=== PATIENT | male | born 2005 | race Hispanic/Latino ===

== ENCOUNTER 2024-08-18 04:19 | Emergency (ER) | payer OTHER, SELFPAY ==
[2024-08-18 04:21] VITALS: BP 171/86
[2024-08-18 05:24] VITALS: BP 135/67
[2024-08-18 05:25] VITALS: BMI 27.7
[2024-08-18 05:47] LABS: % Basophils 0.5 % (0-2); % Eosinophils 0.8 % (0-6); % Immature Granulocytes 0.2 % (0-0.5); % Lymphocytes 23.5 % (20.5-51.1); % Monocytes 5.9 % (1.7-9.3); % Neutrophils 69.1 % (42.2-75.2); Absolute Basophils 0.1 10^3/uL (0-0.2); Absolute Eosinophils 0.1 10^3/uL (0-0.7); Absolute Lymphocytes 2.3 10^3/uL (1.2-3.4); Absolute Monocytes 0.6 10^3/uL (0.1-0.6); Absolute Neutrophils 6.7 10^3/uL (1.4-6.5); Hematocrit 47.4 % (39.0-52.0); Hemoglobin 16.2 g/dL (13.0-18.0); Mean Corp Hgb Conc. 34.2 g/dL (33.0-37.0); Mean Corpuscular Hgb 28.1 pg (27.0-31.0); Mean Corpuscular Volume 82.1 fL (80.0-94.0); Mean Platelet Volume 8.2 fL (7.4-10.4); Nucleated Red Blood Cells % 0 % (-); Platelet Count 401 10^3/uL (130-400); Red Blood Cell Count 5.77 10^6/uL (4.70-6.10); Red Cell Dist. Width 12.1 % (11.5-14.5); White Blood Cell Count 9.6 10^3/uL (4.8-10.8)
[2024-08-18 06:00] VITALS: BP 126/78
[2024-08-18 06:04] LABS: ALT (SGPT) 23 U/L (0-50); AST (SGOT) 25 U/L (17-59); Albumin 5.4 g/dl (3.5-5.0); Alkaline Phosphatase 95 U/L (38-126); Blood Urea Nitrogen 20 mg/dl (9-20); Calcium 9.9 mg/dl (8.4-10.2); Carbon Dioxide 26 mmol/L (22-30); Chloride 103 mmol/L (98-107); Estimated Creatinine Clearance 104 ml/min; Glucose 99 mg/dl (70-99); Lipase 86 U/L (23-300); Potassium 4.1 mmol/L (3.5-5.1); Sodium 143 mmol/L (135-145); Total Protein 8.4 g/dl (6.3-8.2); eGFR > 60.00
--- NOTE | 2024-08-18 06:07 | ED.GENMED ---
History of Present Illness
<Bree Cruz MD, Resident - Last Filed: 08/18/24 12:45>
General
Chief Complaint: Abdominal Symptoms
Source: patient and family
Time Seen by Provider: 08/18/24 06:00
History of Present Illness
History of Present Illness:
This is a 19 year old male patient with no significant PMH who is accompanied by his mother who presents to the ER with concerns of nausea. The mother states that patient had a fast food meal on Wednesday which is when his symptoms had started. He
started to feel severe nausea and had one short episode of abdominal pain that day. Since that day, he has only experienced nausea after every meal that lasts an hour and denies any fever, vomiting, chills, diarrhea or constipation. He has not had
any recent history of travel and is not on any daily medications. He has tried PeptoBismol with no relief.
Past History
<Bree Cruz MD, Resident - Last Filed: 08/18/24 12:45>
Past History
ED Past Medical History: None
ED Past Surgical History: None
Social History
Personal: Single
Living: with family
Employment: Student
Review of Systems
<Bree Cruz MD, Resident - Last Filed: 08/18/24 12:45>
Review of Systems
Constitutional: Denies fever or chills
Respiratory: Denies cough
ABD/GI: Reports nausea; Denies abdominal pain, vomiting, diarrhea or constipated
Neurological: Denies dizzy or headache
Phy Exam
<Bree Cruz MD, Resident - Last Filed: 08/18/24 12:45>
General Physical Exam
General Presentation: well appearing and no apparent distress
Cardiovascular Exam
Cardiovascular Exam: regular rate/rhythm and no murmur
Heart Sounds: normal
Pulmonary Exam
Pulmonary Exam: lungs clear, no respiratory distress and no crackles
Gastrointestinal Exam
Gastrointestinal Exam: non tender, soft and non distended
Neurological Exam
Neurological Exam: oriented x3
Musculoskeletal Exam
Musculoskeletal Exam: no edema
Skin Exam
Skin Exam: warm/dry
Psychiatric Exam
Psychiatric Exam: normal mood/affect
Course
<Bree Angelica Cruz MD, Resident - Last Filed: 08/18/24 12:45>
Orders/Labs/Results
Orders:
Orders
08/18/24 05:39
Complete Blood Count/With Diff Urgent
Comprehensive Metabolic Panel Urgent
Lipase Urgent
08/18/24 06:56
0.9% Sodium Chloride 500 ml [Nss] 500 ml IV BOLUS
08/18/24 06:57
Ondansetron HCl [Zofran] 4 mg PO NOW STA
Pantoprazole [Protonix] 20 mg PO NOW STA
08/18/24 07:00
Ondansetron Injectable [Zofran] 4 mg IV NOW STA
Pantoprazole [Protonix IV] 40 mg IV NOW STA
08/18/24 07:01
Ondansetron Injectable [Zofran] 4 mg .ROUTE .STK-MED ONE
08/18/24 07:02
Pantoprazole [Protonix IV] 40 mg .ROUTE .STK-MED ONE
Abnormal Lab Results
08/18/24
05:39
Plt Count 401 H 10^3/uL
(130-400)
Absolute Neuts (auto) 6.7 H 10^3/uL
(1.4-6.5)
Total Protein 8.4 H g/dl
(6.3-8.2)
Albumin 5.4 H g/dl
(3.5-5.0)
08/18/24 05:39
08/18/24 05:39
Vital Signs
Initial and Last Documented VS:
Initial Vital Signs
Pulse Resp BP Pulse Ox
76 18 171/86 100
08/18/24 04:21 08/18/24 04:21 08/18/24 04:21 08/18/24 04:21
Last Documented Vital Signs
Pulse Resp BP Pulse Ox
91 16 137/70 99
08/18/24 06:46 08/18/24 05:30 08/18/24 08:00 08/18/24 08:00
<Yared Singleton MD - Last Filed: 08/18/24 09:28>
Orders/Labs/Results
Orders:
Orders
08/18/24 05:39
Complete Blood Count/With Diff Urgent
Comprehensive Metabolic Panel Urgent
Lipase Urgent
08/18/24 06:56
0.9% Sodium Chloride 500 ml [Nss] 500 ml IV BOLUS
08/18/24 06:57
Ondansetron HCl [Zofran] 4 mg PO NOW STA
Pantoprazole [Protonix] 20 mg PO NOW STA
08/18/24 07:00
Ondansetron Injectable [Zofran] 4 mg IV NOW STA
Pantoprazole [Protonix IV] 40 mg IV NOW STA
08/18/24 07:01
Ondansetron Injectable [Zofran] 4 mg .ROUTE .STK-MED ONE
08/18/24 07:02
Pantoprazole [Protonix IV] 40 mg .ROUTE .STK-MED ONE
Abnormal Lab Results
08/18/24
05:39
Plt Count 401 H 10^3/uL
(130-400)
Absolute Neuts (auto) 6.7 H 10^3/uL
(1.4-6.5)
Total Protein 8.4 H g/dl
(6.3-8.2)
Albumin 5.4 H g/dl
(3.5-5.0)
08/18/24 05:39
08/18/24 05:39
Vital Signs
Initial and Last Documented VS:
Initial Vital Signs
Pulse Resp BP Pulse Ox
76 18 171/86 100
08/18/24 04:21 08/18/24 04:21 08/18/24 04:21 08/18/24 04:21
Last Documented Vital Signs
Pulse Resp BP Pulse Ox
91 16 137/70 99
08/18/24 06:46 08/18/24 05:30 08/18/24 08:00 08/18/24 08:00
<Bree Cruz MD, Resident - Last Filed: 08/18/24 12:45>
MDM/Problems Addressed
Differential Diagnosis Includes:
Viral gastroenteritis, PUD, cholelithiasis, IBS, acute pancreatitis
MDM/Problems Addressed:
He is afebrile with stable vitals and unremarkable physical exam. Abd soft, nondistended and nontender. Blood work without any acute abnormality. Will give IVFs, PPI and zofran for symptomatic relief and trial with food. Patient had relief. Likely
viral gastroenteritis versus gastritis. Stable for discharge with instructions for follow up with GI and PCP for further care along with symptomatic care of pepsid and carafate.
<Bree Cruz MD, Resident - Last Filed: 08/18/24 12:45>
*Critical Care Note
Total Time (30-74mins, 75-104mins- exclusive of procedures): Not Applicable
ED Attending Note
<Bree Cruz MD, Resident - Last Filed: 08/18/24 12:45>
-
Portions of this chart may have been created with voice recognition software.� Occasional wrong word or��sound alike� substitutions may have occurred due to the inherent limitations of voice recognition software.
<Yared Singleton MD - Last Filed: 08/18/24 09:28>
ED Attending Note
Patient seen and examined by attending physician: Yes
ED Attending Note:
Patient without any significant past medical history, presents to ED secondary to persistent intermittent nausea sensation over the past 1 week. Patient states that his symptoms started after eating at [employer]. Since then, with every meal,
patient has been experiencing nausea sensation, typically, an approximately 1 to 2 hours after eating. Denies diarrhea. Patient has had intermittent abdominal cramping sensation, but not persistent. Denies fever or chills. Denies sick contact.
Denies recent travel. Patient does not take any medications daily. Denies previous history of similar symptoms. However, patient's sister is currently being treated for gastritis.
Physical Exam
General: no apparent distress, not acutely ill. afebrile.
Head: nc/at. eomi
Neck: supple. no meningeal signs. normal posterior pharynx
Heart: s1/s2 regular rate and rhythm, no murmur. equal radial pulses.
Lungs: no acute respiratory distress. clear bilaterally
Abdomen: normal bowel sounds. not tender. no distention
Neuro: alert and oriented. no focal neurological deficits
Skin: no rash
Psychiatric: well kept. interactive and cooperative
Extremities: no edema. no calf tenderness
Patient with an unremarkable workup in ED, and remains afebrile, hemodynamically stable, and without any vomiting episodes. Repeat abdominal exam: Soft and nontender. History and exam consistent with likely nonspecific viral illness versus
gastritis versus reflux versus peptic ulcer disease. Doubt an acute surgical abdominal etiology. As such, patient will be treated symptomatically, with PPI/Carafate, along with recommendation to follow-up with GI physician for an outpatient
consultation. Advised to return to ED with worsening symptoms, i.e. fever/worsening pain/vomiting.
Discharge Plan
Departure
Patient Disposition: Home (Routine Discharge)
Date of Disposition: 08/18/24
Time of Disposition: 08:09
Patient with high blood pressure during this ER visit?: Yes
Discharge Problem:
Viral gastroenteritis
Prescriptions:
New
sucralfate [Carafate] 1 gram tablet
1 g PO BID Qty: 30 0RF
Rx Instructions:
Use 1 hr before meals.
famotidine 20 mg tablet
20 mg PO BID Qty: 30 0RF
Referrals:
Xena Solis DO [Family Provider] -
Renae Patterson DO [Active] -
Activity Restrictions/Additional Instructions:
If experiencing any symptoms such as worsening nausea, severe abdominal pain, high grade fevers or vomiting please return to the ER. Use pepsid twice a day and carafate an hour before meals. Please follow up with GI doctor and PCP for further care.
Interventions
Interventions:
*Risk Screen - Suicide Last Done: 08/18/24 04:24
*General Assessment Last Done: 08/18/24 05:26
*Neglect/Abuse Screening Last Done: 08/18/24 04:24
ED- Fall Risk Assessment Last Done: 08/18/24 05:26
*ED COVID-19 Vaccine History Last Done: 08/18/24 04:21
*Nursing Disposition Last Done: 08/18/24 08:30
VT-Yhljwt-Fxcsmhbghp Assessment Last Done: 08/18/24 05:26
Discharge Date and Time
Discharge Date/Time: 08/18/24 08:30
Print Language: THAI
[2024-08-18 07:01] VITALS: BP 119/65
[2024-08-18] MEDS: ZOFRAN 4 MG IV (07:05)
[2024-08-18] MEDS: NSS 500 IV (07:05)
[2024-08-18] MEDS: PROTONIX IV 40 MG IV (07:05)
[2024-08-18 08:00] VITALS: BP 137/70
== END 2024-08-18 08:30 | disposition home or self-care (01) ==
LOC: EMR 04:19
PROVIDERS: Student in an Organized Health Care Education/Training Program; EMERGENCY PHYSICIAN Emergency Medicine; FAMILY PHYSICIAN Internal Medicine
DX: A08.4 Viral intestinal infection, unspecified (principal); R03.0 Elevated blood-pressure reading, without diagnosis of hypertension
CPT/HCPCS: 99284; 96374; 96375; 80053; 83690; 85025

== ENCOUNTER 2024-11-05 19:11 | Emergency (ER) | payer OTHER, SELFPAY ==
[2024-11-05 19:13] VITALS: BP 143/86
--- NOTE | 2024-11-05 20:02 | ED.GENMED ---
History of Present Illness
General
Chief Complaint: Abdominal Symptoms
Source: patient and family
Exam Limitations: none
Time Seen by Provider: 11/05/24 19:49
History of Present Illness
History of Present Illness:
Patient is a 19-year-old male brought to the ER by mom for evaluation. Patient has had intermittent nausea and diarrhea for the past several days after eating ham. He also describes feeling a really weird sensation in his throat However
denies sensation of a sore throat. He denies any difficulty breathing or swallowing his own secretions .
he has intermittent chills. He denies any cough, recent URI symptoms. He denies any actual abdominal pain. He denies any shortness of breath. He denies any fevers.
Past History
Past History
ED Past Medical History: None
ED Past Surgical History: None
Social History
Personal: Single
Living: with family
Employment: Student
Review of Systems
Review of Systems
Allergies reviewed?: Yes
All Other Systems: ROS reviewed and negative except as documented in HPI and ROS
Constitutional: Reports chills
Respiratory: Reports no symptoms
Cardiac: Reports no symptoms
ABD/GI: Reports nausea and diarrhea
: Reports no symptoms
Musculoskeletal: Reports no symptoms
Skin: Reports no symptoms
Neurological: Reports no symptoms
Psychiatric: Reports no symptoms
Phy Exam
General Physical Exam
General Presentation: no apparent distress
General age: appears stated age
General Skin: warm
General Habitus: normal
General Mental: alert
General Hydration: appears well hydrated
ENT Exam
ENT Exam: EOMI, pharynx normal, neck supple and other (No exudative tonsils uvula midline pharynx is normal)
Cardiovascular Exam
Cardiovascular Exam: regular rate/rhythm, no murmur and normal peripheral pulses
Pulmonary Exam
Pulmonary Exam: lungs clear and no respiratory distress
Gastrointestinal Exam
Gastrointestinal Exam: non tender and soft
Neurological Exam
Neurological Exam: alert and oriented x3
Musculoskeletal Exam
Musculoskeletal Exam: full ROM
Skin Exam
Skin Exam: normal color and warm/dry
Psychiatric Exam
Psychiatric Exam: normal mood/affect
Course
Orders/Labs/Results
Orders:
Orders
11/05/24 20:19
IV Insert/Care/Rem.- Treatment PRN
0.9% Sodium Chloride 1000 ml [Nss] 1,000 ml IV BOLUS
11/05/24 20:33
COVID-19 Antigen Urgent
Source: Nasal Swab
Complete Blood Count/With Diff Urgent
Comprehensive Metabolic Panel Urgent
Influenza A+B Rapid Molecular Urgent
MELINDA Source: Nasal Swab
Specimen Description:
11/05/24 21:07
Ketorolac [Toradol] 15 mg IV NOW STA
Abnormal Lab Results
11/05/24
20:33
Plt Count 435 H 10^3/uL
(130-400)
Potassium 3.3 L mmol/L
(3.5-5.1)
Glucose 103 H mg/dl
(70-99)
Calcium 10.5 H mg/dl
(8.4-10.2)
Total Protein 8.3 H g/dl
(6.3-8.2)
Albumin 5.5 H g/dl
(3.5-5.0)
11/05/24 20:33
11/05/24 20:33
Vital Signs
Initial and Last Documented VS:
Initial Vital Signs
Temp Pulse Resp BP Pulse Ox
98.4 F 86 18 143/86 99
11/05/24 19:13 11/05/24 19:13 11/05/24 19:13 11/05/24 19:13 11/05/24 19:13
Last Documented Vital Signs
Temp Pulse Resp BP Pulse Ox
98.4 F 80 16 127/60 99
11/05/24 19:13 11/05/24 23:05 11/05/24 23:05 11/05/24 23:05 11/05/24 23:05
MDM/Problems Addressed
MDM/Problems Addressed:
Symptoms are consistent with possible viral syndrome versus food related illness however patient is very nontoxic /;labs unremarkable. Patient was given fluids here in the ER and feels well after go home.
*Critical Care Note
Total Time (30-74mins, 75-104mins- exclusive of procedures): Not Applicable
ED Attending Note
-
Portions of this chart may have been created with voice recognition software.� Occasional wrong word or��sound alike� substitutions may have occurred due to the inherent limitations of voice recognition software.
Discharge Plan
Departure
Patient Disposition: Home (Routine Discharge)
Date of Disposition: 11/05/24
Time of Disposition: 22:29
Patient with high blood pressure during this ER visit?: Yes
Condition: Fair
Covid-19: Not Applicable
Discharge Problem:
Nausea vomiting and diarrhea
Instructions: Diarrhea in teens and adults, [place] Diet, Nausea and Vomiting, Adult (DC), BLOOD PRESSURE
Prescriptions:
No Action
famotidine 20 mg tablet
20 mg PO BID Qty: 30 0RF
Referrals:
UNKNOWN - PT DOES,NOT KNOW [Family Provider] -
Activity Restrictions/Additional Instructions:
Follow-up with family doctor in the next several days and return if any worsening of symptoms.
Interventions
Interventions:
*Risk Screen - Suicide Last Done: 11/05/24 19:13
*General Assessment Last Done: 11/05/24 19:13
*Neglect/Abuse Screening Last Done: 11/05/24 19:13
ED- Fall Risk Assessment Last Done: 11/05/24 20:16
*ED COVID-19 Vaccine History Last Done: 11/05/24 20:16
*Nursing Disposition Last Done: 11/05/24 23:05
ME-Ejljrd-Yxxkznkcay Assessment Last Done: 11/05/24 20:19
Discharge Date and Time
Discharge Date/Time: 11/05/24 23:05
Print Language: FRENCH
[2024-11-05] MEDS: NSS 1000 IV (20:39)
[2024-11-05 20:51] LABS: % Basophils 0.5 % (0-2); % Eosinophils 1.8 % (0-6); % Immature Granulocytes 0.2 % (0-0.5); % Lymphocytes 27.4 % (20.5-51.1); % Monocytes 6.7 % (1.7-9.3); % Neutrophils 63.4 % (42.2-75.2); Absolute Basophils 0.1 10^3/uL (0-0.2); Absolute Eosinophils 0.2 10^3/uL (0-0.7); Absolute Lymphocytes 2.5 10^3/uL (1.2-3.4); Absolute Monocytes 0.6 10^3/uL (0.1-0.6); Absolute Neutrophils 5.8 10^3/uL (1.4-6.5); Hematocrit 46.1 % (39.0-52.0); Hemoglobin 15.7 g/dL (13.0-18.0); Mean Corp Hgb Conc. 34.1 g/dL (33.0-37.0); Mean Corpuscular Hgb 27.8 pg (27.0-31.0); Mean Corpuscular Volume 81.6 fL (80.0-94.0); Mean Platelet Volume 8.4 fL (7.4-10.4); Nucleated Red Blood Cells % 0 % (-); Platelet Count 435 10^3/uL (130-400); Red Blood Cell Count 5.65 10^6/uL (4.70-6.10); Red Cell Dist. Width 12.1 % (11.5-14.5); White Blood Cell Count 9.2 10^3/uL (4.8-10.8)
[2024-11-05 21:03] LABS: COVID-19 Antigen Negative (Negative)
[2024-11-05 21:04] LABS: ALT (SGPT) 22 U/L (0-50); AST (SGOT) 24 U/L (17-59); Albumin 5.5 g/dl (3.5-5.0); Alkaline Phosphatase 101 U/L (38-126); Blood Urea Nitrogen 18 mg/dl (9-20); Calcium 10.5 mg/dl (8.4-10.2); Carbon Dioxide 26 mmol/L (22-30); Chloride 101 mmol/L (98-107); Glucose 103 mg/dl (70-99); Potassium 3.3 mmol/L (3.5-5.1); Sodium 142 mmol/L (135-145); Total Bilirubin 1.2 mg/dl (0.2-1.3); Total Protein 8.3 g/dl (6.3-8.2); eGFR > 60.00
[2024-11-05] MEDS: TORADOL 15 MG IV (21:32)
[2024-11-05 21:36] VITALS: BP 126/75
[2024-11-05 21:38] VITALS: BMI 27.1
[2024-11-05 23:05] VITALS: BP 127/60
== END 2024-11-05 23:05 | disposition home or self-care (01) ==
LOC: EMR 19:11
PROVIDERS: Nurse Practitioner; EMERGENCY PHYSICIAN Student in an Organized Health Care Education/Training Program
DX: R11.2 Nausea with vomiting, unspecified (principal); R19.7 Diarrhea, unspecified; R68.83 Chills (without fever); Z11.52 Encounter for screening for COVID-19
CPT/HCPCS: 96374; 96361; 99284; 80053; 85025; 87502; 87811

== ENCOUNTER 2024-11-12 13:55 | Emergency (ER) | payer OTHER, SELFPAY ==
[2024-11-12 13:56] VITALS: BP 148/88
--- NOTE | 2024-11-12 14:51 | ED.GENMED ---
History of Present Illness
General
Chief Complaint: Abdominal Pain
Source: patient and family
Exam Limitations: none
Time Seen by Provider: 11/12/24 14:35
Nursing documentation reviewed up to this point in time: agreed with
History of Present Illness
History of Present Illness:
Patient presents to ED secondary to intermittent abdominal pain along with nausea sensation, associated with decreased appetite. Denies fever or chills. Abdominal pain described as burning/sharp, nonradiating, without any alleviating or
exacerbating factors. Denies trauma. Denies diarrhea. Denies recent change in medications or diet. Patient does take Protonix and Pepcid as an outpatient, without improving symptoms. Patient has been evaluated in ED for similar complaint on
multiple occasions recently. There is family history of 'gastritis'.
Past History
Past History
ED Past Medical History: None
ED Past Surgical History: None
Social History
Personal: Single
Living: with family
Employment: Student
Review of Systems
Review of Systems
Allergies reviewed?: Yes
All Other Systems: ROS reviewed and negative except as documented in HPI and ROS
Constitutional: Reports no symptoms; Denies fever
EENT: Reports no symptoms
Respiratory: Reports no symptoms
Cardiac: Reports no symptoms
ABD/GI: Reports abdominal pain and nausea; Denies vomiting
: Reports no symptoms
Musculoskeletal: Reports no symptoms
Skin: Reports no symptoms
Neurological: Reports no symptoms
Phy Exam
Physical Exam
Physical Exam:
Physical Exam
General: no apparent distress, not acutely ill. afebrile
Head: nc/t. eomi
Neck: supple. no meningeal signs.
Heart: s1/s2 regular rate and rhythm, no murmur.
Lungs: no acute respiratory distress. clear bilaterally
Abdomen: normal bowel sounds. not tender. no distention
Neuro: alert and oriented x 3. no focal neurological deficits
Skin: no rash
Psychiatric: well kept. interactive and cooperative
Extremities: no edema. no calf tenderness.
Course
Orders/Labs/Results
Orders:
Orders
11/12/24 14:47
Iohexol [Omnipaque] 50 ml .ROUTE .STK-MED ONE
11/12/24 14:51
CT Abd/pel W Iv And Oral Contr Urgent
Comment:
Reason For Exam: abdominal pain
0.9% Sodium Chloride 500 ml [Nss] 500 ml IV BOLUS
Iohexol [Omnipaque] See Protocol PO NOW STA
Pantoprazole [Protonix IV] 40 mg IV NOW STA
11/12/24 15:18
Complete Blood Count/With Diff Urgent
Comprehensive Metabolic Panel Urgent
Lipase Urgent
Magnesium Urgent
11/12/24 21:43
Urinalysis Reflex To Culture Urgent
Date Specimen was Collected: 11/12/24
Time Specimen was Collected: 20:31
Urine Microscopic Reflex Cult Urgent
Abnormal Lab Results
11/12/24 11/12/24
15:18 21:43
Calcium 10.4 H mg/dl
(8.4-10.2)
Urine Ketones 3+ A
(Negative)
Urine Albumin (Reflex) 2+ A
(Neg - Trace)
11/12/24 15:18
11/12/24 15:18
Vital Signs
Initial and Last Documented VS:
Initial Vital Signs
Temp Pulse Resp BP Pulse Ox
98.3 F 87 20 148/88 99
11/12/24 13:56 11/12/24 13:56 11/12/24 13:56 11/12/24 13:56 11/12/24 13:56
Last Documented Vital Signs
Temp Pulse Resp BP Pulse Ox
98.3 F 82 15 140/82 99
11/12/24 13:56 11/12/24 19:24 11/12/24 19:24 11/12/24 19:24 11/12/24 19:24
MDM/Problems Addressed
MDM/Problems Addressed:
CT report reviewed and discussed with patient and his mother. Copy of CT report provided to patient's mother, with recommendation to speak with primary care physician about potential referral to nephrology for an outpatient consultation.
Patient's presenting symptoms likely secondary to nonspecific gastritis versus reflux versus ulcer. Patient will be referred to GI office for an outpatient evaluation. Patient otherwise is afebrile, hemodynamically stable, and nontoxic-appearing,
at time of discharge.
*Critical Care Note
Total Time (30-74mins, 75-104mins- exclusive of procedures): Not Applicable
ED Attending Note
-
Portions of this chart may have been created with voice recognition software.� Occasional wrong word or��sound alike� substitutions may have occurred due to the inherent limitations of voice recognition software.
Discharge Plan
Departure
Patient Disposition: Home (Routine Discharge)
Date of Disposition: 11/12/24
Time of Disposition: 22:27
Patient with high blood pressure during this ER visit?: Yes
Condition: Good
Discharge Problem:
Abdominal pain
Instructions: Abdominal Pain
Prescriptions:
No Action
famotidine 20 mg tablet
20 mg PO BID Qty: 30 0RF
Referrals:
García Patterson MD [Active] -
Valentín Azevedo MD [Family Provider] -
Activity Restrictions/Additional Instructions:
As discussed, please follow-up with your primary care physician and/or referred to GI physician for further evaluation and treatment. In addition, please speak with your primary care physician about potential referral to nephrology for an
outpatient consultation, as there appears to be an incidental finding noted on CT scan performed today.
Interventions
Interventions:
*Risk Screen - Suicide Last Done: 11/12/24 13:56
*General Assessment Last Done: 11/12/24 13:56
LX-Tvkubv-Cjckqcjhfu Assessment Last Done: 11/12/24 15:55
Discharge Date and Time
Discharge Date/Time: 11/12/24 22:30
Print Language: DJIBOUTIAN
[2024-11-12] MEDS: NSS 500 IV (15:22)
[2024-11-12] MEDS: OMNIPAQUE 50 ML PO (15:23)
[2024-11-12] MEDS: PROTONIX IV 40 MG IV (15:26)
[2024-11-12 15:36] LABS: % Basophils 0.8 % (0-2); % Eosinophils 4.8 % (0-6); % Immature Granulocytes 0.2 % (0-0.5); % Lymphocytes 29.9 % (20.5-51.1); % Monocytes 8.4 % (1.7-9.3); % Neutrophils 55.9 % (42.2-75.2); Absolute Basophils 0.1 10^3/uL (0-0.2); Absolute Eosinophils 0.3 10^3/uL (0-0.7); Absolute Lymphocytes 1.8 10^3/uL (1.2-3.4); Absolute Monocytes 0.5 10^3/uL (0.1-0.6); Absolute Neutrophils 3.4 10^3/uL (1.4-6.5); Hematocrit 45.4 % (39.0-52.0); Hemoglobin 15.5 g/dL (13.0-18.0); Mean Corp Hgb Conc. 34.1 g/dL (33.0-37.0); Mean Corpuscular Hgb 27.7 pg (27.0-31.0); Mean Corpuscular Volume 81.1 fL (80.0-94.0); Mean Platelet Volume 8.6 fL (7.4-10.4); Nucleated Red Blood Cells % 0 % (-); Platelet Count 351 10^3/uL (130-400); Red Cell Dist. Width 12.3 % (11.5-14.5); White Blood Cell Count 6.1 10^3/uL (4.8-10.8)
[2024-11-12 15:50] LABS: ALT (SGPT) 15 U/L (0-50); AST (SGOT) 23 U/L (17-59); Albumin 4.8 g/dl (3.5-5.0); Alkaline Phosphatase 80 U/L (38-126); Blood Urea Nitrogen 19 mg/dl (9-20); Calcium 10.4 mg/dl (8.4-10.2); Carbon Dioxide 29 mmol/L (22-30); Chloride 103 mmol/L (98-107); Glucose 85 mg/dl (70-99); Lipase 133 U/L (23-300); Magnesium 2.1 mg/dl (1.6-2.3); Potassium 4.2 mmol/L (3.5-5.1); Sodium 142 mmol/L (135-145); Total Bilirubin 1.1 mg/dl (0.2-1.3); Total Protein 7.6 g/dl (6.3-8.2); eGFR > 60.00
[2024-11-12 15:55] VITALS: BMI 24.6
[2024-11-12 19:24] VITALS: BP 140/82
[2024-11-12 22:06] LABS: Urine Albumin 2+ (Neg - Trace); Urine Bilirubin Negative (Negative); Urine Character Clear (Clear); Urine Color Yellow; Urine Glucose Negative (Negative); Urine Ketone 3+ (Negative); Urine Leukocyte Negative (Negative); Urine Nitrite Negative (Negative); Urine Occult Blood Negative (Negative); Urine Urobilinogen Negative (Neg - 1+); Urine pH 6.5 (5.0-9.0)
[2024-11-12 22:12] LABS: Urine Red Blood Cell None Seen /HPF (0-2); Urine White Cell None Seen /HPF (0-5)
== END 2024-11-12 22:30 | disposition home or self-care (01) ==
LOC: EMR 13:55
PROVIDERS: EMERGENCY PHYSICIAN Emergency Medicine; FAMILY PHYSICIAN Internal Medicine
DX: R10.9 Unspecified abdominal pain (principal); R11.0 Nausea
CPT/HCPCS: 99284; 96374; 96361; 74177; 80053; 81003; 81015; 83690; 83735; 85025; Q9967

== ENCOUNTER 2024-11-16 11:00 | Emergency (ER) | payer OTHER, SELFPAY ==
[2024-11-16 11:04] VITALS: BP 141/60
[2024-11-16 11:37] VITALS: BMI 24.6
[2024-11-16 11:52] LABS: Urine Albumin 1+ (Neg - Trace); Urine Bilirubin Negative (Negative); Urine Character Cloudy (Clear); Urine Color Yellow; Urine Glucose Negative (Negative); Urine Ketone 1+ (Negative); Urine Leukocyte Negative (Negative); Urine Nitrite Negative (Negative); Urine Occult Blood 1+ (Negative); Urine Specific Gravity 1.025 (<1.030); Urine Urobilinogen Negative (Neg - 1+)
[2024-11-16 12:03] LABS: Urine Mucus Many
[2024-11-16 12:04] LABS: Urine Squamous Cell 0-2 /LPF (Few)
[2024-11-16 12:05] LABS: Urine Bacteria Few (Negative)
--- NOTE | 2024-11-16 12:09 | ED.GENMED ---
History of Present Illness
<APRIL Holt Last Filed: 11/16/24 17:43>
General
Chief Complaint: Flank Pain
Source: patient
Time Seen by Provider: 11/16/24 11:57
History of Present Illness
History of Present Illness:
19 year old male presents for evaluation for right lower abdominal pain onset 2-3 days. The pain is intermittent sharp in nature occasionally radiates to the right flank. There is nausea no vomiting or fever. He notes he is not urinating as much.
He was here several days ago for abdominal pain thought to have gastroenteritis. CT showed possible bilateral nephritis. Patient did call nephrology he does not have an appointment till February. He also notes a new rash under the arms but he notes
trying a new deodorant over the past several days no fever. No other complaints at this time.
Past History
<APRIL Holt Last Filed: 11/16/24 17:43>
Past History
ED Past Medical History: None
ED Past Surgical History: None
Social History
Personal: Single
Living: with family
Employment: Student
Phy Exam
<APRIL Holt Last Filed: 11/16/24 17:43>
Physical Exam
Physical Exam:
General: Well-appearing male no acute respiratory distress
HEENT: Normocephalic atraumatic
Heart: Regular rate and rhythm
Lungs: Clear no wheeze
Abdomen soft mildly tender to the right lower abdomen no guarding or rebound no costovertebral angle tenderness normal bowel sounds
Skin: Several hyperpigmented macules in a circular fashion at the base of the neck. There is also a slightly raised erythematous pruritic rash under the arms bilaterally
Extremities: No cyanosis or edema
Course
<APRIL Holt Last Filed: 11/16/24 17:43>
Orders/Labs/Results
Orders:
Orders
11/16/24 11:45
Urinalysis Reflex To Culture Urgent
Date Specimen was Collected: 11/16/24
Time Specimen was Collected: 11:38
Urine Microscopic Reflex Cult Urgent
11/16/24 12:19
Complete Blood Count/With Diff Urgent
Comprehensive Metabolic Panel Urgent
11/16/24 12:38
US Abdomen - Appendix Only Urgent
Comment:
Reason For Exam: rlq pain
US Renal With Bladder Urgent
Comment:
Reason For Exam: rlq pain
Abnormal Lab Results
11/16/24
11:45
Urine Ketones 1+ A
(Negative)
Ur Occult Blood Reflex 1+ A
(Negative)
Urine RBC 3-6 A /HPF
(0-2)
Urine Bacteria (Reflex) Few A
(Negative)
Urine Albumin (Reflex) 1+ A
(Neg - Trace)
11/16/24 12:19
11/16/24 12:19
Vital Signs
Initial and Last Documented VS:
Initial Vital Signs
Temp Pulse Resp BP Pulse Ox
98.2 F 62 18 141/60 100
11/16/24 11:04 11/16/24 11:04 11/16/24 11:04 11/16/24 11:04 11/16/24 11:04
Last Documented Vital Signs
Temp Pulse Resp BP Pulse Ox
98.6 F 75 17 134/71 99
11/16/24 16:19 11/16/24 16:19 11/16/24 16:19 11/16/24 16:19 11/16/24 16:19
<Noé Gonzalez MD - Last Filed: 11/16/24 13:00>
Orders/Labs/Results
Orders:
Orders
11/16/24 11:45
Urinalysis Reflex To Culture Urgent
Date Specimen was Collected: 11/16/24
Time Specimen was Collected: 11:38
Urine Microscopic Reflex Cult Urgent
11/16/24 12:19
Complete Blood Count/With Diff Urgent
Comprehensive Metabolic Panel Urgent
11/16/24 12:38
US Abdomen - Appendix Only Urgent
Comment:
Reason For Exam: rlq pain
US Renal With Bladder Urgent
Comment:
Reason For Exam: rlq pain
Abnormal Lab Results
11/16/24
11:45
Urine Ketones 1+ A
(Negative)
Ur Occult Blood Reflex 1+ A
(Negative)
Urine RBC 3-6 A /HPF
(0-2)
Urine Bacteria (Reflex) Few A
(Negative)
Urine Albumin (Reflex) 1+ A
(Neg - Trace)
11/16/24 12:19
11/16/24 12:19
Vital Signs
Initial and Last Documented VS:
Initial Vital Signs
Temp Pulse Resp BP Pulse Ox
98.2 F 62 18 141/60 100
11/16/24 11:04 11/16/24 11:04 11/16/24 11:04 11/16/24 11:04 11/16/24 11:04
Last Documented Vital Signs
Temp Pulse Resp BP Pulse Ox
98.6 F 75 17 134/71 99
11/16/24 16:19 11/16/24 16:19 11/16/24 16:19 11/16/24 16:19 11/16/24 16:19
Sandiplt;Yrn Graham PA-C - Last Filed: 11/16/24 17:43>
MDM/Problems Addressed
Differential Diagnosis Includes:
Patient with right lower abdominal pain. Recent ER visit noted recent CT reviewed demonstrating possible bilateral pyelonephritis versus renal lymphoma. They did send appointment with nephrology however this is not until February. Check urine and
labs. Question possible repeat CAT scan secondary to new pain. Rash on neck could be viral in nature or something like pityriasis. Rash under the arms could be contact dermatitis from new deodorant
<Yrn Graham PA-C - Last Filed: 11/16/24 17:43>
*Critical Care Note
Total Time (30-74mins, 75-104mins- exclusive of procedures): Not Applicable
<Yrn Graham PA-C - Last Filed: 11/16/24 17:43>
Update Note
Update Note:
Workup here essentially unremarkable. Discussed with emergency room attending. Ultrasound of renal and bladder was ordered. As well as ultrasound of the appendix. Appendix was not definitively visualized but there is no free fluid in the lower
abdomen. Ultrasound of the kidneys was unremarkable. Discussed CAT scan findings from couple days ago with nephrology. No acute need for any intervention at this time. Stable for discharge with nephrology follow-up. Low clinical suspicion of
appendicitis.
ED Attending Note
<Yrn Graham PA-C - Last Filed: 11/16/24 17:43>
-
Portions of this chart may have been created with voice recognition software.� Occasional wrong word or��sound alike� substitutions may have occurred due to the inherent limitations of voice recognition software.
<Noé Gonzalez MD - Last Filed: 11/16/24 13:00>
ED Attending Note
Patient seen and examined by attending physician: Yes
I performed the substantive portion of visit, reviewed & personally made and approve the management plan that is documented in note by myself or DANNY.: Yes
ED Attending Note:
Patient returns complaining of some right lower quadrant pain. Has been there for 3 to 4 days. He has had ongoing abdominal issues for months but describing more epigastric nausea reflux-like issues. No fever. No flank pain no urinary symptoms.
CT on November 12 showed possible bilateral pyelonephritis versus lymphoma versus nephritis. Urine did have albumin it. On exam patient is nontoxic in no distress. Warm and dry. Perfusing well. He is a pityriasis like rash around his neck. He has
a contact dermatitis rash to both axillas. He has no petechia or purpura. Has no other rash. He is nontoxic in appearance. Abdomen is soft. He has very very minimal right lower quadrant tenderness. No rebound or guarding no mass or hernia. He
is warm and dry perfusing well.
Previous testing reviewed. Discussed with radiology. We will be contacting nephrology. Starting with repeat labs which are all stable except for the urine which shows +1 blood and some albumin. Will start with ultrasounds.
Discharge Plan
Departure
Patient Disposition: Home (Routine Discharge)
Date of Disposition: 11/16/24
Time of Disposition: 17:38
Patient with high blood pressure during this ER visit?: No
Discharge Problem:
Abdominal pain
Prescriptions:
No Action
omeprazole magnesium [Prilosec OTC] 20 mg Tablet,Delayed Release (Dr/Ec)
20 mg PO . DIRECTED
Referrals:
Valentín Azevedo MD [Family Provider] -
Activity Restrictions/Additional Instructions:
Workup here was unremarkable. Please continue to follow-up with nephrology. Return if needed otherwise
Interventions
Interventions:
*Risk Screen - Suicide Last Done: 11/16/24 11:04
*General Assessment Last Done: 11/16/24 11:04
*Neglect/Abuse Screening Last Done: 11/16/24 11:04
*ED COVID-19 Vaccine History Last Done: 11/16/24 11:04
CO-Aijcyk-Plpoweyscq Assessment Last Done: 11/16/24 11:51
ED-Male Genitourinary Assessment Last Done: 11/16/24 11:51
Discharge Date and Time
Print Language: PANAMANIAN
[2024-11-16 12:34] LABS: % Basophils 0.9 % (0-2); % Eosinophils 5.2 % (0-6); % Immature Granulocytes 0.2 % (0-0.5); % Lymphocytes 31.4 % (20.5-51.1); % Monocytes 7.7 % (1.7-9.3); % Neutrophils 54.6 % (42.2-75.2); Absolute Basophils 0.1 10^3/uL (0-0.2); Absolute Eosinophils 0.3 10^3/uL (0-0.7); Absolute Lymphocytes 1.7 10^3/uL (1.2-3.4); Absolute Monocytes 0.4 10^3/uL (0.1-0.6); Hematocrit 45.4 % (39.0-52.0); Hemoglobin 15.6 g/dL (13.0-18.0); Mean Corp Hgb Conc. 34.4 g/dL (33.0-37.0); Mean Corpuscular Hgb 28.1 pg (27.0-31.0); Mean Corpuscular Volume 81.8 fL (80.0-94.0); Nucleated Red Blood Cells % 0 % (-); Platelet Count 344 10^3/uL (130-400); Red Blood Cell Count 5.55 10^6/uL (4.70-6.10); Red Cell Dist. Width 12.4 % (11.5-14.5); White Blood Cell Count 5.6 10^3/uL (4.8-10.8)
[2024-11-16 12:45] LABS: ALT (SGPT) 21 U/L (0-50); AST (SGOT) 30 U/L (17-59); Albumin 4.9 g/dl (3.5-5.0); Alkaline Phosphatase 82 U/L (38-126); Blood Urea Nitrogen 18 mg/dl (9-20); Calcium 10.2 mg/dl (8.4-10.2); Carbon Dioxide 27 mmol/L (22-30); Chloride 103 mmol/L (98-107); Estimated Creatinine Clearance 98 ml/min; Glucose 91 mg/dl (70-99); Sodium 141 mmol/L (135-145); Total Bilirubin 1.2 mg/dl (0.2-1.3); Total Protein 7.7 g/dl (6.3-8.2); eGFR > 60.00
[2024-11-16 12:56] VITALS: BP 109/54
[2024-11-16 14:06] VITALS: BP 116/69
[2024-11-16 16:19] VITALS: BP 134/71
== END 2024-11-16 17:53 | disposition home or self-care (01) ==
LOC: EMR 11:00
PROVIDERS: Physician Assistant; EMERGENCY PHYSICIAN Emergency Medicine; FAMILY PHYSICIAN Internal Medicine
DX: R10.31 Right lower quadrant pain (principal); R21 Rash and other nonspecific skin eruption
CPT/HCPCS: 99284; 76705; 76770; 80053; 81003; 81015; 85025

== ENCOUNTER 2024-12-12 05:13 | Emergency (ER) | payer OTHER, SELFPAY ==
[2024-12-12 05:20] VITALS: BP 148/88
--- NOTE | 2024-12-12 07:00 | EDRN ---
awaiting for the provider to come to the pts bedside
--- NOTE | 2024-12-12 07:11 | EDRN ---
Dr. Driscoll currently at the pts bedside
--- NOTE | 2024-12-12 07:26 | ED.GENMED ---
History of Present Illness
General
Chief Complaint: Abdominal Pain
Source: patient, records and family
Exam Limitations: none
Time Seen by Provider: 12/12/24 06:38
Nursing documentation reviewed up to this point in time: agreed with
History of Present Illness
History of Present Illness:
19-year-old male 3 months of upper abdominal pain associated with eating nausea few days of diarrhea seen in the ER had a CT of the abdomen appendix ultrasound renal ultrasound been taking Pepcid, nondrinker non-smoker no marijuana has lost 14
pounds and has a identical clinical brother with no symptoms, he followed up with GI apparently had a H. pylori test which was negative
Past History
Past History
ED Past Medical History: None
ED Past Surgical History: None
Social History
Tobacco: Non-smoker
Alcohol: None
Drug: None
Personal: Single
Living: with family
Employment: Student
Family History
Family History: Other (Twin brother with no symptoms)
Phy Exam
Physical Exam
Physical Exam:
Physical Exam
General: no apparent distress, not acutely ill
Neck: Dry lips
Heart: s1/s2 regular rate and rhythm, no murmur. equal radial pulses.
Lungs: no acute respiratory distress. clear bilaterally
Abdomen: Mild epigastric tender
Neuro: alert and oriented. no focal neurological deficits
Skin: no rash
Psychiatric: well kept. interactive and cooperative
Extremities: no edema.
Course
Orders/Labs/Results
Orders:
Orders
12/12/24 07:13
0.9% Sodium Chloride 1000 ml [Nss] 1,000 ml IV BOLUS
Pantoprazole [Protonix IV] 40 mg IV NOW STA
12/12/24 07:19
US Abdomen Complete/Upper Urgent
Comment:
Reason For Exam: paimn
12/12/24 07:29
CRP [C-Reactive Protein] Urgent
Complete Blood Count/With Diff Urgent
Comprehensive Metabolic Panel Urgent
ESR [Erythrocyte Sed Rate] Urgent
Lipase Urgent
12/12/24 10:17
Mag Hydrox/Al Hydrox/Simeth [Maalox] 30 ml Phenobarb/Hyoscy/Atropine/Scop [] 10 ml PO NOW
12/12/24 10:26
Mag Hydrox/Al Hydrox/Simeth [Maalox] 30 ml .ROUTE .STK-MED ONE
Phenobarb/Hyoscy/Atropine/Scop [] 10 ml .ROUTE .STK-MED ONE
Abnormal Lab Results
12/12/24
07:29
BUN 22 H mg/dl
(9-20)
Calcium 10.4 H mg/dl
(8.4-10.2)
12/12/24 07:29
12/12/24 07:29
Vital Signs
Initial and Last Documented VS:
Initial Vital Signs
Temp Pulse Resp BP Pulse Ox
98.2 F 96 20 148/88 100
12/12/24 05:20 12/12/24 05:20 12/12/24 05:20 12/12/24 05:20 12/12/24 05:20
Last Documented Vital Signs
Temp Pulse Resp BP Pulse Ox
98.6 F 76 16 131/85 99
12/12/24 10:15 12/12/24 10:15 12/12/24 10:15 12/12/24 10:15 12/12/24 10:15
MDM/Problems Addressed
Differential Diagnosis Includes:
Gastritis pancreatitis biliary colic inflammatory bowel disease
MDM/Problems Addressed:
Abdominal pain weight loss
*Critical Care Note
Total Time (30-74mins, 75-104mins- exclusive of procedures): Not Applicable
Update Note
Update Note:
10 AM, update patient feeling better, points to his mid abdomen and left upper abdomen states he had pain there after eating, ultrasound reviewed, looks like a polyp but no other abnormalities up-to-date reviewed about small polyps at this point
believe it is GERD as he is feeling better after PPI will discharge on a PPI, I did reach out to on-call GI to try to get him follow-up in the clinic
ED Attending Note
-
Portions of this chart may have been created with voice recognition software.� Occasional wrong word or��sound alike� substitutions may have occurred due to the inherent limitations of voice recognition software.
Discharge Plan
Departure
Patient Disposition: Home (Routine Discharge)
Date of Disposition: 12/12/24
Time of Disposition: 10:13
Patient with high blood pressure during this ER visit?: No
Discharge Problem:
Abdominal pain
Instructions: Acid Reflux and GERD in Adults (DC), Nausea and Vomiting, Adult (DC), Abdominal Pain
Prescriptions:
New
ondansetron 4 mg tablet,disintegrating
4 mg PO Q8H PRN (Reason: nausea and vomiting) Qty: 20 0RF
pantoprazole [Protonix] 40 mg tablet,delayed release (DR/EC)
40 mg PO BID 10 Days Qty: 20 0RF
No Action
omeprazole magnesium [Prilosec OTC] 20 mg Tablet,Delayed Release (Dr/Ec)
20 mg PO . DIRECTED
Referrals:
Rodríguez Chandler DO [Active] - Keep scheduled appt (Monday 12/18 at 8am)
Valentín Hastings PA [Family Provider] -
Activity Restrictions/Additional Instructions:
[place] diet nothing fatty or spicy
Zofran as needed for nausea vomiting
Start Protonix twice a day
You have a follow-up appointment scheduled with Gastroenterology on Monday 12/18 at 8 AM
Interventions
Interventions:
*Risk Screen - Suicide Last Done: 12/12/24 05:20
*General Assessment Last Done: 12/12/24 07:37
*Neglect/Abuse Screening Last Done: 12/12/24 05:20
*ED- Fall Risk Assessment Last Done: 12/12/24 07:37
*ED COVID-19 Vaccine History Last Done: 12/12/24 07:37
*Nursing Disposition Last Done: 12/12/24 10:16
LT-Lbtxeu-Ifellwcewq Assessment Last Done: 12/12/24 07:37
Discharge Date and Time
Discharge Date/Time: 12/12/24 10:31
Print Language: [id number]
[2024-12-12] MEDS: PROTONIX IV 40 MG IV (07:29)
[2024-12-12] MEDS: NSS 1000 IV (07:30)
[2024-12-12 07:32] VITALS: BP 123/79
[2024-12-12 07:36] VITALS: BMI 22.7
[2024-12-12 07:37] VITALS: BP 123/79
[2024-12-12 07:50] LABS: % Basophils 0.5 % (0-2); % Eosinophils 1.5 % (0-6); % Immature Granulocytes 0.1 % (0-0.5); % Lymphocytes 32.2 % (20.5-51.1); % Monocytes 6.8 % (1.7-9.3); % Neutrophils 58.9 % (42.2-75.2); Absolute Eosinophils 0.1 10^3/uL (0-0.7); Absolute Lymphocytes 2.7 10^3/uL (1.2-3.4); Absolute Monocytes 0.6 10^3/uL (0.1-0.6); Hematocrit 43.8 % (39.0-52.0); Hemoglobin 15.4 g/dL (13.0-18.0); Mean Corp Hgb Conc. 35.2 g/dL (33.0-37.0); Mean Corpuscular Hgb 28.3 pg (27.0-31.0); Mean Corpuscular Volume 80.4 fL (80.0-94.0); Mean Platelet Volume 8.9 fL (7.4-10.4); Nucleated Red Blood Cells % 0 % (-); Platelet Count 337 10^3/uL (130-400); Red Blood Cell Count 5.45 10^6/uL (4.70-6.10); Red Cell Dist. Width 12.6 % (11.5-14.5); White Blood Cell Count 8.5 10^3/uL (4.8-10.8)
[2024-12-12 07:58] LABS: ALT (SGPT) 38 U/L (0-50); AST (SGOT) 39 U/L (17-59); Albumin 4.9 g/dl (3.5-5.0); Alkaline Phosphatase 86 U/L (38-126); Blood Urea Nitrogen 22 mg/dl (9-20); Calcium 10.4 mg/dl (8.4-10.2); Carbon Dioxide 28 mmol/L (22-30); Chloride 106 mmol/L (98-107); Estimated Creatinine Clearance 122 ml/min; Glucose 84 mg/dl (70-99); Lipase 131 U/L (23-300); Potassium 3.8 mmol/L (3.5-5.1); Sodium 143 mmol/L (135-145); Total Protein 7.6 g/dl (6.3-8.2); eGFR > 60.00
[2024-12-12 08:00] VITALS: BP 133/74
[2024-12-12 10:15] VITALS: BP 131/85
[2024-12-12] MEDS: MAALOX 40 PO (10:28)
[2024-12-12 11:23] LABS: Erythrocyte Sed Rate 2 mm/hour (0-20)
== END 2024-12-12 10:31 | disposition home or self-care (01) ==
LOC: EMR 05:13
PROVIDERS: EMERGENCY PHYSICIAN Emergency Medicine; FAMILY PHYSICIAN Specialist/Technologist Athletic Trainer
DX: R10.10 Upper abdominal pain, unspecified (principal); K82.4 Cholesterolosis of gallbladder
CPT/HCPCS: 96374; 96361; 99284; 76700; 80053; 83690; 85025; 85652; 86140

== ENCOUNTER 2024-12-19 06:25 | Day surgery (SDC) | payer OTHER, SELFPAY | END 2024-12-19 15:47 | disposition home or self-care (01) | LOC: GI 06:25 | PROVIDERS: ATTENDING PHYSICIAN Student in an Organized Health Care Education/Training Program | DX: R10.13 Epigastric pain (principal); R63.4 Abnormal weight loss; R11.0 Nausea; K29.50 Unspecified chronic gastritis without bleeding; K31.89 Other diseases of stomach and duodenum | CPT/HCPCS: 43239; 88305; 88342 ==